=== PATIENT | female | born 1975 | race Caucasian/White ===

== ENCOUNTER 2017-11-23 09:22 | Inpatient (IN) | payer OTHER ==
[~2017-11-23] VITALS: Ht 165.1 cm; Wt 70.8 kg
[2017-11-23] MEDS ORDERED: ATORVASTATIN CA20 MG PO (10:09)
[2017-11-23] MEDS ORDERED: SYNTH PO (10:10)
[2017-11-23] MEDS ORDERED: [UNRECOGNIZED DRUG - OTHER] PO (10:10)
[2017-11-29] MEDS ORDERED: IBUPROFEN800 MG PO (06:35)
[2017-11-29] MEDS ORDERED: LEVSIN/SL0.125 MG PO (06:35)
[2017-11-29] MEDS ORDERED: MINOCIN100 MG PO (06:35)
[2017-11-29] MEDS ORDERED: PERCOCET 5-3251 EACH PO (06:35)
[2017-11-29] MEDS ORDERED: FLAGYL500MG PO (06:35)
[2017-11-29] MEDS ORDERED: MAXFE CAPLET1 EACH PO (06:35)
== END 2017-11-29 08:56 | disposition home or self-care (01) | DRG 742 ==
LOC: OB/GYN 11-27 05:51 → O/R 11-27 05:51 → SURH 11-27 07:00 → OB/GYN 11-27 10:37
PROVIDERS: Obstetrics & Gynecology Gynecology; Urology
PROC: 0UT50ZZ Resection of Right Fallopian Tube, Open Approach (ICD-10-PCS; 2017-11-27)
PROC: 0T788DZ Dilation of Bilateral Ureters with Intraluminal Device, Via Natural or Artificial Opening Endoscopic (ICD-10-PCS; 2017-11-27)
PROC: 0UT90ZZ Resection of Uterus, Open Approach (ICD-10-PCS; principal; 2017-11-27 07:00)
PROC: 0UT00ZZ Resection of Right Ovary, Open Approach (ICD-10-PCS; 2017-11-27 07:00)
DX: D25.1 Intramural leiomyoma of uterus (principal); N70.03 Acute salpingitis and oophoritis; D25.0 Submucous leiomyoma of uterus; D25.2 Subserosal leiomyoma of uterus; N80.0 Endometriosis of uterus; N94.89 Other specified conditions associated with female genital organs and menstrual cycle; N92.0 Excessive and frequent menstruation with regular cycle